=== PATIENT | male | born 2005 | race African-American/Black ===

== ENCOUNTER 2024-05-11 04:17 | Emergency (ER) | payer OTHER, SELFPAY ==
[2024-05-11] VITALS (7 sets, daily range): BP systolic 123–153; BP diastolic 73–91; PULSE 62–96; RESP 14–17; TEMP 36.4; O2SAT 99–100
--- OUTSIDE RECORDS SUMMARY | 2024-05-11 08:54 | XMS_ITS | Clinical Summary ---
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 Gender Identity Not on file Sexual Orientation Not on file Last Filed Vital Signs Vital Sign Reading Time Taken Comments Blood Pressure 120/78 01/04/2019 5:44 PM CDT Pulse 80 01/04/2019 5:44 PM CDT Temperature 36.8 C (98.3 F) 01/04/2019 5:44 PM CDT Respiratory Rate 16 01/04/2019 5:44 PM CDT Oxygen Saturation 98% 01/04/2019 5:44 PM CDT Inhaled Oxygen Concentration - - Weight 62.6 kg (138 lb) 01/04/2019 5:44 PM CDT Height 172.7 cm (5' 8 ) 01/04/2019 5:44 PM CDT Body Mass Index 20.98 01/04/2019 5:44 PM CDT Plan of Treatment Health Maintenance Due Date Last Done Comments Annual Physical 2007 Hepatitis C 2022 Meningococcal B Vaccine (2 of 2 - Bexsero SCDM 2-dose series) 07/02/2022 01/02/2022 Hepatitis B Vaccines (1 of 3 - 19+ 3-dose series) 2023 COVID-19 Vaccine (4 - 2023-25 season) 2023 03/31/2021, 08/07/2020, 07/18/2020 Influenza Adult (#1) 2024 01/02/2022, 02/28/2020, 02/19/2015, Additional history exists DTaP, Tdap and Td Vaccines (7 - Td or Tdap) 02/19/2025 02/19/2015, 08/06/2008, 08/03/2005, Additional history exists Pneumococcal Vaccine: Pediatrics (0 to 5 Years) and At-Risk Patients (6 to 64 Years) Aged Out 04/09/2005, 2004, 2004, Additional history exists No longer eligible based on patient's age to complete this topic HPV Vaccines Completed 11/28/2018, 06/28/2017 Meningococcal Vaccine Completed 12/09/2021, 015 RSV Immunizations Under 20 Months Aged Out No longer eligible based on patient's age to complete this topic Insurance [facility] Care Teams Newspaper Clipper Relationship Specialty Start Date End Date None, Provider, PCP - General 01/04/19
--- OUTSIDE RECORDS SUMMARY | 2024-05-11 08:54 | XMS_ITS | Encounter Summary ---
Author Organization [facility] Address [address] [place] [address] Care Team Providers Care Generalist Name Role Phone None, Provider Primary Care Provider Unavaila ble Encounter Details Date Type Department Care Team (Late st Contact Info) Description 06/19/2017 Abstract [facility] CONVERSION [address] [place] [address] , Generic Conversion, Social History Tobacco Use Types Packs/Day Years Used Date Smoking Tobacco: Never Assessed Sex and Gender Information Value Date Recorded Sex Assigned at Not on file Legal Sex Male 10:14 PM SUPPORT DIRECTOR Gender Identity Not on file Sexual Orientation Not on file documented as of this encounter Plan of Treatment Not on file documented as of this encounter Visit Diagnoses Not on filedocumented in this encounter Care Teams Generalist Relationship Specialty Start Date End Date None, Provider, PCP - General 01/04/19 documented as of this encounter
--- NOTE | 2024-05-11 10:16 | ED.GENADULT ---
HPI - General Adult General Chief complaint: Unspecified Stated complaint: constipation Time Seen by Provider: 05/11/24 08:09 History of Present Illness HPI narrative: Patient 19-year-old gentleman presents emergency department with chief complaint of constipation. Patient reports last bowel movement was about a week ago patient reports that he saw the school nurse who started him on a [id number] stool softener took some Mag citrate and also has been taking MiraLax for the last 2 days. Related Data Allergies Allergy/AdvReac Type Severity Reaction Status Date / Time No Known Allergies Allergy Verified 05/11/24 08:01 Review of Systems Review of Systems: A 10 system review of systems was completed on the patient and is negative except for what is stated in the HPI. Nursing and ancillary documentation was reviewed. Exam Narrative: GENERAL: Well-appearing, well-nourished, and in no acute distress. HEAD: Normocephalic, atraumatic. EYES: PERRLA and EOMI. ENT: Nares clear, no rhinorrhea or epistaxis. Mucous membranes moist. NECK: Supple. CHEST: Clear to auscultation. No respiratory distress. HEART: Regular rate and rhythm. No murmur heard. Normal peripheral pulses. ABDOMEN: Soft, nontender, nondistended, normal active bowel sounds. : There is large amount of stool in the rectal vault guaiac-negative stool EXTREMITIES: Normal range of motion. No edema. SKIN: Warm, dry, no rash. NEURO: No focal deficits. Alert and oriented x3. PSYCH: Normal mood and affect. Course Vital Signs Vital signs: Vital Signs Temperature 36.4 C 05/11/24 04:20 Pulse Rate 96 05/11/24 04:20 Respiratory Rate 17 05/11/24 04:20 Blood Pressure 153/91 H 05/11/24 04:20 Pulse Oximetry 99 05/11/24 04:20 Oxygen Delivery Room Air 05/11/24 04:20 Temperature 36.4 C 05/11/24 04:20 Pulse Rate 76 05/11/24 09:31 Respiratory Rate 16 05/11/24 09:31 Blood Pressure 123/84 05/11/24 09:31 Pulse Oximetry 100 05/11/24 09:31 Oxygen Delivery Room Air 05/11/24 04:20 Medical Decision Making Vital Signs Vital Signs: Vital Signs Temperature 36.4 C 05/11/24 04:20 Pulse Rate 96 05/11/24 04:20 Respiratory Rate 17 05/11/24 04:20 Blood Pressure 153/91 H 05/11/24 04:20 Pulse Oximetry 99 05/11/24 04:20 Oxygen Delivery Room Air 05/11/24 04:20 Temperature 36.4 C 05/11/24 04:20 Pulse Rate 76 05/11/24 09:31 Respiratory Rate 16 05/11/24 09:31 Blood Pressure 123/84 05/11/24 09:31 Pulse Oximetry 100 05/11/24 09:31 Oxygen Delivery Room Air 05/11/24 04:20 Discharge Plan Discharge Clinical Impression: Fecal impaction Patient Disposition: Home, Self-Care Condition: Stable Instructions: Antibiotic Form, Fecal Impaction (ED) Patient Language: Hungarian Follow-up/Referrals: Marcin Davidson MD [Physician] - UNKNOWN,DOCTOR [Primary Care Provider] - Time of Disposition: 10:37
== END 2024-05-11 10:40 | disposition home or self-care (01) ==
PROVIDERS: Emergency Provider Emergency Medicine
DX: K56.41 Fecal impaction (principal)
CPT/HCPCS: 99282